=== PATIENT | male | born 1935 | race Caucasian/White ===

== ENCOUNTER 2022-12-15 20:05 | Emergency (ER) | payer MEDICARE ==
[~2022-12-15] VITALS: Ht 175.3 cm; Wt 95.3 kg
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
--- NOTE | 2022-12-15 21:20 | NUR ---
URINE COLLECTED SENT TO LAB
--- NOTE | 2022-12-15 21:25 | NUR ---
PT CALLED [facility] REQUESTING TO LEAVE HOSPITAL. DR. PATINO AWARE.
--- NOTE | 2022-12-15 21:34 | NUR ---
DR. PATINO AT BEDSIDE
[2022-12-15] MEDS ORDERED: NALO4SPR BNOSTRILS (21:45)
--- NOTE | 2022-12-15 21:49 | NUR ---
SEEN BY DR. PATINO. PT STILL WANTING TO LEAVE AMA. PT SIGNED AMA PAPERS. IV FROM EMS DISCONTINUED. PAPERWORKS PROVIDED.
[2022-12-15 21:51] VITALS: BP 150/77
== END 2022-12-15 22:05 | disposition left against medical advice (07) ==
LOC: ER 20:11
DX: T40.411A Poisoning by fentanyl or fentanyl analogs, accidental (unintentional), initial encounter (principal); R11.2 Nausea with vomiting, unspecified; F15.90 Other stimulant use, unspecified, uncomplicated; I10 Essential (primary) hypertension; Y92.89 Other specified places as the place of occurrence of the external cause